=== PATIENT | female | born 1965 | race Caucasian/White ===

== ENCOUNTER 2016-10-20 14:25 | Emergency (ER) | payer OTHER ==
--- NOTE | 2016-10-20 14:53 | EKG Report ---
Test Performed on : 10/20/2016 2:32:25 PM Test Reason : CHEST PAIN Blood Pressure : / mmHG Vent. Rate : 059 BPM Atrial Rate : 059 BPM P-R Int : 142 ms QRS Dur : 076 ms QT Int : 420 ms P-R-T Axes : 030 056 050 degrees QTc Int : 415 ms Sinus bradycardia. Otherwise normal ECG No previous ECGs available Unconfirmed Result
[2016-10-20 15:02] LABS: MANUAL DIFF NEEDED? NO
[2016-10-20 15:05] LABS: BASO% 1.8 % (0.0-0.8); EOS# 0.13 X1000 (0.0-0.7); EOS% 1.9 % (0.0-10.0); HEMATOCRIT 42.7 % (37.0-47.0); HEMOGLOBIN 14.6 g/dL (12.0-16.0); IMM GRAN# 0.03 X1000 (0.0-0.04); IMM GRAN% 0.4 % (0.0-0.5); LYMPH# 3.32 X1000 (1.2-3.4); LYMPH% 49.6 % (20.5-51.1); MCH 30.1 PG (27-31); MCHC 34.2 g/dL (33-37); MONO# 0.54 X1000 (0.11-0.59); MONO% 8.1 % (1.7-9.3); MPV 9.7 FL (7.4-10.4); NEUT% 38.2 % (42.2-75.2); PLT 271 X1000 (130-400); RBC 4.85 XMIL (4.2-5.4)
[2016-10-20 15:12] LABS: INR 1.04; PTT 23.4 Seconds (22.0-36.0)
--- NOTE | 2016-10-20 15:20 | ED EKG INTERP ---
EKG Interpretation - EKG Time of EKG reading by physician:: 14:32 EKG Read and Signed by:: Dipesh Ahn EKG Interpretation (*Must complete 3 of following elements*): Normal Rate: 59 Rhythm: Sinus Bradycardia [place]: normal QRS: normal [place] Interval: normal ST Wave: normal Attestation - Scribe Verification/Attestation Scribe:: Andrae Mims Acting as Scribe for:: Dipesh Ahn Scribe documention review:: This chart was documented by a scribe and accurately reflects the service the provider performed and the decisions made by the provider. Physician Attestation - Physician Attestation I, the provider, attest to the following statement:: Dipesh Ahn Physician documentation Attestation:: This documentation recorded by the scribe accurately reflects the service I personally performed and the decisions made by me.
[2016-10-20 15:23] LABS: AGAP 13; ALKALINE PHOSPHATASE 101 U/L (32-104); BUN 10 mg/dL (8-22); CALCIUM 8.9 mg/dL (8.8-10.2); CHLORIDE 102 mmol/L (98-107); CK PROFILE 63 U/L (24-173); COSMO 278; GOT 25 U/L (10-30); GPT 32 U/L (10-36); MAGNESIUM 1.8 mg/dL (1.5-2.7); POTASSIUM 4.1 mmol/L (3.5-5.1); SODIUM 140 mmol/L (136-145); TCO2 25 mmol/L (25-35); TOTAL BILIRUBIN 0.23 mg/dL (0.20-1.00); TOTAL PROTEIN 6.7 g/dL (6.3-8.3)
--- NOTE | 2016-10-20 16:18 | Diag Imaging Result Document ---
PROCEDURE NAME: CHEST-2 VIEWS - 10/20/2016 FRONTAL AND LATERAL CHEST, 2 VIEWS: FINDINGS: The lungs are well expanded. The heart is not enlarged. The vessels are distended. No pneumonia. No pleural effusions. No free air beneath the diaphragm. IMPRESSION: No acute abnormality.
--- NOTE | 2016-10-20 16:45 | PROVIDER DOCUMENTATION ---
HPI-Chest Pain <Vani Douglas - Last Filed: 10/20/16 16:44> - General Source: patient <Tyron Arrieta - Last Filed: 10/20/16 17:22> - General Chief Complaint: Chest Pain Stated Complaint: CHEST PAIN Time Seen by Provider: 10/20/16 16:38 Allergies/Adverse Reactions: Patient Allergies Allergy/AdvReac Type Severity Reaction Status Date / Time No Known Allergies Allergy Verified 10/20/16 16:24 Home Medications: Home Medication List Medication Instructions Recorded Confirmed Last Taken Type Famotidine [Pepcid] 20 mg PO DAILY #20 tablet 10/20/16 Unknown Rx Polyethylene Glycol 3350 [Miralax] 1 cap PO DAILY #1 powder 10/20/16 Unknown Rx - History of Present Illness-CP Nature of Presenting Problem: Pt is a 51 y/o F c chief complaint of recurrent chest pain x 5 months. Pt describes episodes of chest pain as squeezing pain that makes her SOB. Pt has had episodes after eating spicy food however today's episode happened while she was at work doing non-strenuous work. Pt went to an urgent care and was referred to the ER. On arrival at the ER, pt's chest pain has mostly resolved. Pt has a h/o constipation and acid reflux. Pt is stable and in no distress. ( Tyron Arrieta) Review of Systems - Adult - REVIEW OF SYSTEMS - ADULT Constitutional: reports: no symptoms reported. denies: chills, fatique Eyes: reports: no symptoms reported. denies: blurred vision, double vision Ears, Nose, Mouth & Throat: reports: no symptoms reported. denies: ear pain, nose pain Cardiovascular: reports: see HPI, chest pain. denies: orthopnea Respiratory: reports: see HPI, shortness of breath Gastrointestinal: denies: abdominal pain, nausea, vomiting Genitourinary: reports: no symptoms reported. denies: dysuria, frequent UTI's Musculoskeletal: reports: no symptoms reported. denies: bone pain, joint pain, joint swelling Integumentary: reports: no symptoms reported. denies: itching, rash Neurological: reports: no symptoms reported. denies: numbness, paresthesia Psychiatric: reports: no symptoms reported. denies: anxiety, emotional problems Endocrine: reports: no symptoms reported. denies: cold intolerance, heat intolerance Hematologic/Lymphatic: reports: no symptoms reported. denies: blood clots, lymphedema Allergic/Immunologic: reports: no symptoms reported. denies: allergic reactions , food allergy All Other Systems: Reviewed and Negative <Tyron Arrieta - Last Filed: 10/20/16 17:22> Past History - Adult - PAST MEDICAL HISTORY-ADULT Review of Records: reports: Nursing Assessment Review <Vani Douglas - Last Filed: 10/20/16 16:44> - PAST MEDICAL HISTORY-ADULT Review of Records: reports: Old Records Reviewed, Nursing Assessment Review, Medications Reviewed, Social history reviewed & non-contributory. Major Childhood Illnesses: reports: denies history Cardiovascular: reports: denies history Respiratory: reports: denies history Gastrointestinal: reports: GERD Obstetrical/Gynecological: reports: denies history Genitourinary: reports: denies history Musculoskeletal: reports: denies history Neurological: reports: denies history Endocrine/Immune: reports: denies history Other Conditions: reports: denies history - PRIOR SURGERIES/PROCEDURES Surgical/Procedure History: reports: none - IMMUNIZATION STATUS Childhood Immunizations: See Nurse Assessment Flu Vaccine: See Nurse Assessment - FAMILY HISTORY Family History: reviewed, not pertinent - SOCIAL HISTORY Smoking: cigarettes Substance Use: none/never Alcohol Use Frequency: never Living Situation: family <Tyron Arrieta - Last Filed: 10/20/16 17:22> Physical Exam-General - PHYSICAL EXAM-ADULT Initial Vital Signs Reviewed: Yes <Vani Douglas - Last Filed: 10/20/16 16:44> - PHYSICAL EXAM-ADULT Initial Vital Signs Reviewed: Yes - CONSTITUTIONAL General Appearance: appears well, alert, no apparent distress - EYES Eyes: PERRL/EOMI, pink conjunctivae - HEAD, EARS, NOSE, MOUTH & THROAT HENMT: normocephalic/atraumatic, moist mucous membranes, normal ENT inspection - NECK Neck: non-tender, full range of motion, supple - RESPIRATORY Respiratory: chest non-tender, lungs clear, normal breath sounds - CARDIOVASCULAR Cardiovascular: normal peripheral pulses, regular rate, rhythm, no edema - GASTROINTESTINAL (ABDOMEN) Abdominal Exam: normal bowel sounds, non tender, soft, no organomegaly, no pulsatile mass - LYMPHATIC Lymphatic: no adenopathy - MUSCULOSKELETAL Back Exam: normal inspection, no CVA tenderness, no vertebral tenderness Extremity: normal range of motion, non-tender, normal gait - SKIN Integumentary: normal color, normal turgor, warm/dry - NEUROLOGIC Neurologic: grossly normal, no motor/sensory deficits - PSYCHIATRIC Psych/Mental Status: normal mood/affect, normal thought content, normal thought process, oriented x 3 <Tyron Arrieta - Last Filed: 10/20/16 17:22> Progress <Vani Douglas - Last Filed: 10/20/16 16:44> <Tyron Arrieta - Last Filed: 10/20/16 17:22> - PLAN OF CARE/RESULTS Progress/Plan/Lab Results: Laboratory Tests 10/20/16 10/20/16 10/20/16 14:51 14:51 14:51 WBC 6.70 RBC 4.85 Hgb 14.6 Hct 42.7 MCV 88.0 MCH 30.1 MCHC 34.2 RDW Std Deviation 12.9 Plt Count 271 MPV 9.7 Immature Gran % (Auto) 0.4 Neut % (Auto) 38.2 L Lymph % (Auto) 49.6 [place] % (Auto) 8.1 Eos % (Auto) 1.9 Baso % (Auto) 1.8 H Immature Gran # (Auto) 0.03 Neut # (Auto) 2.56 Lymph # (Auto) 3.32 [place] # (Auto) 0.54 Eos # (Auto) 0.13 Baso # (Auto) 0.12 PT INR PTT (Actin FS) D-Dimer 0.31 Sodium 140 Potassium 4.1 Chloride 102 Carbon Dioxide 25 Anion Gap 13 BUN 10 Creatinine 0.6 Estimated GFR/1.73 m2 > 60 BUN/Creatinine Ratio 17 Glucose 86 Calculated Osmolality 278 Calcium 8.9 Magnesium 1.8 Total Bilirubin 0.23 AST 25 ALT 32 Alkaline Phosphatase 101 Creatine Kinase 63 Troponin T Nzx-H-Xzrmgmjealf Pept Total Protein 6.7 Albumin 4.0 Globulin 2.7 Albumin/Globulin Ratio 1.5 10/20/16 10/20/16 10/20/16 14:51 14:51 14:51 WBC RBC Hgb Hct MCV MCH MCHC RDW Std Deviation Plt Count MPV Immature Gran % (Auto) Neut % (Auto) Lymph % (Auto) [place] % (Auto) Eos % (Auto) Baso % (Auto) Immature Gran # (Auto) Neut # (Auto) Lymph # (Auto) [place] # (Auto) Eos # (Auto) Baso # (Auto) PT 11.0 INR 1.04 PTT (Actin FS) 23.4 D-Dimer Sodium Potassium Chloride Carbon Dioxide Anion Gap BUN Creatinine Estimated GFR/1.73 m2 BUN/Creatinine Ratio Glucose Calculated Osmolality Calcium Magnesium Total Bilirubin AST ALT Alkaline Phosphatase Creatine Kinase Troponin T < 0.010 Css-D-Ierwskmezsq Pept 100 Total Protein Albumin Globulin Albumin/Globulin Ratio Orders Category Date Time Status Cardiac Monitoring DIRECTED Care 10/20/16 14:47 Active Saline Loc NOW Care 10/20/16 14:47 Active CHEST-2 VIEWS [RAD] Stat Exams 10/20/16 14:47 Completed CBC WITH ELECTRONIC DIFF [HEME] Stat Lab 10/20/16 14:51 Completed CK PROFILE [SP CHEM] Stat Lab 10/20/16 14:51 Completed COMPREHENSIVE METABOLIC PANEL [CHEM] Stat Lab 10/20/16 14:51 Completed D-DIMER [CHEM] Stat Lab 10/20/16 14:51 Completed MAGNESIUM [CHEM] Stat Lab 10/20/16 14:51 Completed PRO B-NATRIURETIC PEPTIDE Stat Lab 10/20/16 14:51 Completed PROTIME WITH INR [COAG] Stat Lab 10/20/16 14:51 Completed PTT [COAG] Stat Lab 10/20/16 14:51 Completed TROPONIN T Stat Lab 10/20/16 14:51 Completed EKG [EKG] Stat Ther 10/20/16 14:47 Draft Vital Signs - 24 hr 10/20/16 10/20/16 14:30 16:40 Temperature 97.8 F Pulse Rate 62 58 L Respiratory 22 18 Rate Blood Pressure 173/80 O2 Sat by Pulse 100 98 Oximetry (Misael,Vani) Orders Category Date Time Status Cardiac Monitoring DIRECTED Care 10/20/16 14:47 Active Saline Loc NOW Care 10/20/16 14:47 Active CHEST-2 VIEWS [RAD] Stat Exams 10/20/16 14:47 Completed CBC WITH ELECTRONIC DIFF [HEME] Stat Lab 10/20/16 14:51 Completed CK PROFILE [SP CHEM] Stat Lab 10/20/16 14:51 Completed COMPREHENSIVE METABOLIC PANEL [CHEM] Stat Lab 10/20/16 14:51 Completed D-DIMER [CHEM] Stat Lab 10/20/16 14:51 Completed MAGNESIUM [CHEM] Stat Lab 10/20/16 14:51 Completed PRO B-NATRIURETIC PEPTIDE Stat Lab 10/20/16 14:51 Completed PROTIME WITH INR [COAG] Stat Lab 10/20/16 14:51 Completed PTT [COAG] Stat Lab 10/20/16 14:51 Completed TROPONIN T Stat Lab 10/20/16 14:51 Completed Brado/Renay Alk/Al&mg Hydrox [G.i. Cocktail] Med 10/20/16 17:14 Discontinued 30 ml PO NOW ONE EKG [EKG] Stat Ther 10/20/16 14:47 Draft Laboratory Tests 10/20/16 10/20/16 10/20/16 14:51 14:51 14:51 WBC 6.70 RBC 4.85 Hgb 14.6 Hct 42.7 MCV 88.0 MCH 30.1 MCHC 34.2 RDW Std Deviation 12.9 Plt Count 271 MPV 9.7 Immature Gran % (Auto) 0.4 Neut % (Auto) 38.2 L Lymph % (Auto) 49.6 [place] % (Auto) 8.1 Eos % (Auto) 1.9 Baso % (Auto) 1.8 H Immature Gran # (Auto) 0.03 Neut # (Auto) 2.56 Lymph # (Auto) 3.32 [place] # (Auto) 0.54 Eos # (Auto) 0.13 Baso # (Auto) 0.12 PT INR PTT (Actin FS) D-Dimer 0.31 Sodium 140 Potassium 4.1 Chloride 102 Carbon Dioxide 25 Anion Gap 13 BUN 10 Creatinine 0.6 Estimated GFR/1.73 m2 > 60 BUN/Creatinine Ratio 17 Glucose 86 Calculated Osmolality 278 Calcium 8.9 Magnesium 1.8 Total Bilirubin 0.23 AST 25 ALT 32 Alkaline Phosphatase 101 Creatine Kinase 63 Troponin T Xcp-P-Uqboohvmiqz Pept Total Protein 6.7 Albumin 4.0 Globulin 2.7 Albumin/Globulin Ratio 1.5 10/20/16 10/20/16 10/20/16 14:51 14:51 14:51 WBC RBC Hgb Hct MCV MCH MCHC RDW Std Deviation Plt Count MPV Immature Gran % (Auto) Neut % (Auto) Lymph % (Auto) [place] % (Auto) Eos % (Auto) Baso % (Auto) Immature Gran # (Auto) Neut # (Auto) Lymph # (Auto) [place] # (Auto) Eos # (Auto) Baso # (Auto) PT 11.0 INR 1.04 PTT (Actin FS) 23.4 D-Dimer Sodium Potassium Chloride Carbon Dioxide Anion Gap BUN Creatinine Estimated GFR/1.73 m2 BUN/Creatinine Ratio Glucose Calculated Osmolality Calcium Magnesium Total Bilirubin AST ALT Alkaline Phosphatase Creatine Kinase Troponin T < 0.010 Fjx-E-Acomdbtsdru Pept 100 Total Protein Albumin Globulin Albumin/Globulin Ratio Vital Signs - 24 hr 10/20/16 10/20/16 14:30 16:40 Temperature 97.8 F Pulse Rate 62 58 L Respiratory 22 18 Rate Blood Pressure 173/80 O2 Sat by Pulse 100 98 Oximetry (Tyron Arrieta) Departure <Vani Douglas - Last Filed: 10/20/16 16:44> - Departure Time of Disposition Order: 17:13 Certified Medical Emergency: Emergent <Tyron Arrieta - Last Filed: 10/20/16 17:22> - Departure DIAGNOSIS: Chest pain Qualifiers: Chest pain type: unspecified Qualified Code(s): R07.9 - Chest pain, unspecified GERD (gastroesophageal reflux disease) Qualifiers: Esophagitis presence: with esophagitis Qualified Code(s): K21.0 - Gastro- esophageal reflux disease with esophagitis Disposition: HOME 01 Condition: Stable Additional Instructions: ED Follow Up Instructions: You have been treated by a care provider in the Emergency Department. These instructions are being provided to you so you can have an understanding of how to care for yourself upon discharge. Upon discharge from the Emergency Department, you are responsible for making arrangements for follow-up care by a physician of your choice. Take all prescribed medications as directed. Return to the Emergency Department immediately for any new or worsening symptoms. You may call the Physician Referral phone number at [phone] to obtain a list of Physicians who are taking new patients. Prescriptions: Polyethylene Glycol 3350 [Miralax] 1 cap PO DAILY #1 powder Famotidine [Pepcid] 20 mg PO DAILY #20 tablet Referrals: Nomi Hummel MD [Primary Care Provider] - Robert Rojas MD [STAFF PHYSICIAN] - Call for Appoint. 1-2days (FOLLOW UP WITHIN 48 HOURS) Attestation - Scribe Verification/Attestation Scribe:: Vani Douglas Acting as Scribe for:: Tyron rArieta Scribe documention review:: This chart was documented by a scribe and accurately reflects the service the provider performed and the decisions made by the provider. <Vani Douglas - Last Filed: 10/20/16 16:44> - Physician/ DAYNA Attestation Patient care was provided by Advanced Practice Provider:: Yes Advanced Practice Provider:: Tyron Arrieta Advanced Practice Provider documentation review:: The Mid-level provider documentation, treatment plan and medical decision making was reviewed by the physician who agrees with all treatment and medical decision making by the MLP. <Tyron Arrieta - Last Filed: 10/20/16 17:22> Physician Attestation - Physician Attestation I, the provider, attest to the following statement:: Tyron Arrieta Physician documentation Attestation:: This documentation recorded by the scribe accurately reflects the service I personally performed and the decisions made by me. <Tyron Arrieta - Last Filed: 10/20/16 17:22>
[2016-10-20] MEDS ORDERED: G.I. COCKTAIL PO ONE (17:14)
[2016-10-20 17:55] VITALS: BP 147/71
== END 2016-10-20 17:53 | disposition home or self-care (01) ==
LOC: ED 14:25
DX: R07.9 Chest pain, unspecified (principal); K21.0 Gastro-esophageal reflux disease with esophagitis; R06.02 Shortness of breath; F17.210 Nicotine dependence, cigarettes, uncomplicated
CPT/HCPCS: 71020; 80053; 82550; 83735; 83880; 84484; 85025; 85379; 85610; 85730; 93005